=== PATIENT | male | born 1975 | race Caucasian/White ===

== ENCOUNTER 2019-02-16 05:49 | Outpatient (CLI) | payer BC ==
[~2019-02-16] VITALS: Ht 185.4 cm; Wt 81.2 kg
[2019-02-16] MEDS ORDERED: ASPI-586 PO (14:53)
[2019-02-16] MEDS ORDERED: MINO100T10 PO (14:53)
[2019-02-16] MEDS ORDERED: SERT50TA9 PO (14:53)
[2019-02-16] MEDS ORDERED: ERGO50006 PO (14:53)
== END 2019-02-16 14:55 ==
LOC: PREOP 05:49
PROVIDERS: ATTEND Surgery
DX: Z01.818 Encounter for other preprocedural examination (principal)

== ENCOUNTER → 2019-02-21 | Day surgery (SDC) | payer BC ==
[~2019-02-21] VITALS: Ht 185.4 cm; Wt 81.2 kg
[~2019-02-21] MED LIST: ASPI-586 PO; ERGO50006 PO; HURRICAINE EXT TUBE (BENZOCAINE) ONE; LACTATED RINGERS 1,000 ML IV ONE; LACTATED RINGERS 1,000 ML IV STA; MIDAZOLAM 2 MG/2 ML (VERSED) VIAL ONE; MINO100T10 PO; PANT40TA2 PO; SERT50TA9 PO; proPOfol 200 MG/20 ML (DIPRIVAN) VIAL IV ONE
[2019-02-21 10:00] VITALS: BP 91/75
--- OUTSIDE RECORDS SUMMARY | 2019-02-21 11:13 | XMS REPORT | Continuity of Care Document ---
Author Organization Unknown Address Unknown Allergies There is no data. Medications There is no data. Problems There is no data. Procedures There is no data. Results Test Result Range TSH w/ FREE T4 - 01/31/19 11:22 TSH 1.04 mIU/L 0.40-4.50 T4, FREE 1.2 ng/dL 0.8-1.8 LIPID PANEL - 01/31/19 11:22 CHOLESTEROL, TOTAL 112 mg/dL <200 HDL CHOLESTEROL 35 mg/dL >40 TRIGLYCERIDES 85 mg/dL <150 LDL-CHOLESTEROL 60 mg/dL (calc) NRG CHOL/HDLC RATIO 3.2 (calc) <5.0 NON HDL CHOLESTEROL 77 mg/dL (calc) <130 CMP - 01/31/19 11:22 GLUCOSE 74 mg/dL 65-99 UREA NITROGEN (BUN) 15 mg/dL 7-25 CREATININE 0.92 mg/dL 0.60-1.35 eGFR NON-AFR. CITIZEN OF [place] 102 mL/min/1.73m2 > OR=60 eGFR 118 mL/min/1.73m2 > OR=60 BUN/CREATININE RATIO NOT APPLICABLE (calc) 6-22 SODIUM 140 mmol/L 135-146 POTASSIUM 4.2 mmol/L 3.5-5.3 CHLORIDE 104 mmol/L 98-110 CARBON DIOXIDE 31 mmol/L 20-32 CALCIUM 9.7 mg/dL 8.6-10.3 PROTEIN, TOTAL 6.8 g/dL 6.1-8.1 ALBUMIN 4.6 g/dL 3.6-5.1 GLOBULIN 2.2 g/dL (calc) 1.9-3.7 ALBUMIN/GLOBULIN RATIO 2.1 (calc) 1.0-2.5 BILIRUBIN, TOTAL 0.8 mg/dL 0.2-1.2 ALKALINE PHOSPHATASE 43 U/L 40-115 AST 21 U/L 10-40 ALT 15 U/L 9-46 Encounters ACCT No. Visit Date/Time Discharge Status Pt. Type Provider Facility Loc./Unit Complaint [id number] 02/08/2019 16:20:00 02/08/2019 23:59:59 CLS Outpatient SPARROW, BNENY Wong [facility] [id number] 01/31/2019 10:40:00 Document Registration
[2019-02-21] MEDS: HURRICAINE EXT TUBE (BENZOCAINE) XX PRN (12:35)
--- NOTE | 2019-02-21 12:35 | Progress Note-Pre Operative ---
Pre-Operative Progress Note H&P Reviewed The H&P was reviewed, patient examined and no changes noted. Date Seen by Provider: Feb 21, 2019 Time Seen by Provider: 12:34 Date H&P Reviewed: Feb 21, 2019 Time H&P Reviewed: 12:34 Pre-Operative Diagnosis: abnormal weight loss, occult + stool, change in bowel habits ANETA THEODORE DO Feb 21, 2019 12:35
[2019-02-21 14:20] VITALS: BP 114/69
--- NOTE | 2019-02-21 14:27 | Progress Note-Post Operative ---
Post-Operative Progess Note Surgeon (s)/Head Start Teacher (s) Surgeon ANETA THEODORE DO Head Start Teacher: na Pre-Operative Diagnosis abnormal weight loss, occult + stool, change in bowel habits Post-Operative Diagnosis hiatal hernia, esophagitis, sigmoid and rectosigmoid polyps Procedure & Operative Findings Date of Procedure 02/21/19 Procedure Performed/Findings egd c biopsies colonoscopy c cold polypectomy sigmoid and snare polypectomy rectosigmoid Anesthesia Type per mda Estimated Blood Loss Estimated blood loss (mL): none Specimens/Packing Specimens Removed antrum, ge, simogid polyp and rectosigmoid polyp ANETA THEODORE DO Feb 21, 2019 14:27
--- NOTE | 2019-02-21 14:29 | Discharge Inst-Simple/Standard ---
Discharge Inst-Standard Discharge Medications New, Converted or Re-Newed RX: Transmitted to Pharmacy Patient Instructions/Follow Up Plan of Care/Instructions/FU: 2 weeks Missael Activity as Tolerated: Yes Discharge Diet: Regular Diet ANETA THEODORE DO Feb 21, 2019 14:29
[2019-02-21 14:50] VITALS: BP 123/88
[2019-02-21 15:00] VITALS: BP 123/88
--- NOTE | 2019-02-21 21:30 | OPERATIVE REPORT ---
DATE OF SERVICE: 02/21/2019 PREOPERATIVE DIAGNOSES: Abnormal weight loss, occult positive stool, and change in bowel habits. POSTOPERATIVE DIAGNOSES: Hiatal hernia, esophagitis, sigmoid and rectosigmoid polyps. PROCEDURES PERFORMED: Esophagogastroduodenoscopy with biopsies, colonoscopy with cold polypectomy of sigmoid and snare polypectomy of rectosigmoid colon. SURGEON: Aneta Canas DO. ANESTHESIA: Per MDA. ESTIMATED BLOOD LOSS: None. COMPLICATIONS: None. INDICATIONS: The patient is a 43-year-old male with change in bowel habits, no weight loss, occult positive stool. He has history of sleeve gastrectomy. He understands risks and benefits of procedure and wished to proceed with procedure. Consent was signed in the chart. DESCRIPTION OF PROCEDURE: The patient was taken to the endoscopy suite and placed in the left lateral recumbent position. Timeout was performed. Scope was inserted in mouth, down the esophagus, stomach and into the duodenum without difficulty. There were no polyps, mass or ulceration of the duodenum. Scope was slowly directed back into the stomach where it was further insufflated. Evidence of sleeve was present. A biopsy of the antrum was obtained. There are no polyps, masses or ulcerations, had just some slight erythematous changes. Scope was slowly retracted back into the stomach, which also able to be retroflexed noting a small hiatal hernia. Scope was returned to its normal position, slowly withdrawn to the distal esophagus, which had erythematous changes consistent with some reflux esophagitis. Biopsy was obtained. Scope was then slowly retracted back and complete removed, noting no other pathology. Digital rectal exam was performed. There were no palpable polyps, masses or ulcerations. Scope was inserted into the rectum and started to be advanced. In the rectosigmoid junction, a large pedunculated polyp was present. Scope was advanced all the way to the cecum with minimal difficulty. Prep was adequate with irrigation and suction. Scope was then slowly retracted. There were no polyps, masses or ulcerations in the cecum, ascending, transverse or descending colon. In the sigmoid colon, there is a small polyp, which was cold biopsy polypectomy was performed. Scope was continued slowly retracted back. The polyp at the rectosigmoid junction was between 2 folds and unable to be visualized. The scope was inserted and retracted multiple times until visualized and snare polypectomy was then performed. This was then obtained for specimen. Scope was then slowly retracted until completely removed, noting no other pathology. The patient tolerated procedure well without any complications, taken to recovery room in stable condition. RECOMMENDATIONS: The patient will be started on Protonix 40 mg daily. The patient will need a repeat colonoscopy in 1 to 3 years depending upon pathology. Job ID: [id number] DocumentID: [id number] Dictated Date: 02/21/2019 14:32:28 Barrel Plater Date: 02/21/2019 21:29:50 Dictated By: ANETA CANAS DO
== END | disposition home or self-care (01) ==
LOC: ENDO 09:51
PROVIDERS: ATTEND Surgery
DX: D12.5 Benign neoplasm of sigmoid colon (principal); D12.7 Benign neoplasm of rectosigmoid junction; R19.5 Other fecal abnormalities; K59.00 Constipation, unspecified; K21.0 Gastro-esophageal reflux disease with esophagitis; K44.9 Diaphragmatic hernia without obstruction or gangrene; R63.4 Abnormal weight loss; F32.9 Major depressive disorder, single episode, unspecified; F17.210 Nicotine dependence, cigarettes, uncomplicated; Z79.899 Other long term (current) drug therapy; Z98.84 Bariatric surgery status

== ENCOUNTER → 2019-03-03 | Outpatient (CLI) | payer BC ==
[~2019-03-03] MED LIST changes: +HOLD METFORMIN - RECEIVED CONTRAST 20 ML VIAL IV SCH; -HURRICAINE EXT TUBE (BENZOCAINE) ONE; -LACTATED RINGERS 1,000 ML IV ONE; -LACTATED RINGERS 1,000 ML IV STA; -MIDAZOLAM 2 MG/2 ML (VERSED) VIAL ONE; -proPOfol 200 MG/20 ML (DIPRIVAN) VIAL IV ONE
[2019-03-03] MEDS: IOHEXOL 350 MG/ML 100 ML (OMNIPAQUE 350) VIAL IV ONE (08:14)
--- NOTE | 2019-03-03 08:42 | Diagnostic Imaging Report ---
PROCEDURE: CT abdomen and pelvis with and without contrast. TECHNIQUE: Precontrast acquisitions were acquired through the abdomen and pelvis. Multiple contiguous axial images were obtained through the abdomen and pelvis after the administration of intravenous contrast. Auto Exposure Controls were utilized during the CT exam to meet ALARA standards for radiation dose reduction. INDICATION: Unexplained weight loss, recent colonic polypectomy. No priors. FINDINGS: There is no free intraperitoneal air. There is no evidence for abdominal pelvic hemorrhage. No bowel wall thickening or evidence for mural or mesenteric hematoma. There is no small or large bowel obstruction. There were no findings of an ileus. There is no perienteric or pericolonic edema. There is no appendicitis or diverticulitis. The gallbladder is surgically absent. Liver, bile ducts, spleen, adrenals and pancreas appeared unremarkable. There is no pneumatosis or free gas. No abdominal wall defect, hernia or fluid collection. Urinary bladder sousa may be mildly thickened correlate for possible cystitis. Lung bases and the osseous structures were nonacute. IMPRESSION: 1. No evidence for perforation, abscess, hemorrhage, obstruction, inflammatory process, mass or acute/suspect abdominal pelvic abnormalities. 2. Questionable findings for borderline thickening of the urinary bladder sousa, previous surgical changes, otherwise negative. Dictated by: Dictated on workstation # [id number]
== END ==
LOC: RAD 07:33
PROVIDERS: ATTEND Nurse Practitioner
DX: R63.4 Abnormal weight loss (principal); Z90.49 Acquired absence of other specified parts of digestive tract; Z98.890 Other specified postprocedural states
CPT/HCPCS: 74178

== ENCOUNTER → 2019-03-07 | Outpatient (CLI) | payer BC ==
[~2019-03-07] MED LIST changes: -HOLD METFORMIN - RECEIVED CONTRAST 20 ML VIAL IV SCH
--- NOTE | 2019-03-07 11:07 | Diagnostic Imaging Report ---
PROCEDURE: CT chest with contrast only. TECHNIQUE: Multiple contiguous axial images were obtained through the chest after administration of intravenous contrast. Auto Exposure Controls were utilized during the CT exam to meet ALARA standards for radiation dose reduction. INDICATION: Unexpected weight loss. FINDINGS: There are no discrete pulmonary nodules, masses or infiltrates. There is no pleural or pericardial fluid. There is no pneumothorax. Heart size is normal. Thoracic aorta is normal caliber. No pathologically enlarged adenopathy in the chest. The visualized intra-abdominal structures are unremarkable. Mild thoracic spondylosis. IMPRESSION: No acute abnormality in the chest. Dictated by: Dictated on workstation # [id number]
== END ==
LOC: RAD 09:59
PROVIDERS: ATTEND Nurse Practitioner
DX: R63.4 Abnormal weight loss (principal)
CPT/HCPCS: 71260

== ENCOUNTER → 2019-06-19 | Outpatient (CLI) | payer BC ==
--- NOTE | 2019-06-19 09:45 | Diagnostic Imaging Report ---
PROCEDURE: MR imaging cervical spine without contrast. TECHNIQUE: Multiplanar, multisequence MR imaging of the cervical spine was performed without contrast. INDICATION: Neck pain with bilateral hand tingling and numbness. COMPARISON: No prior studies are available for comparison. FINDINGS: Curvature and alignment of the cervical spine is normal. Vertebral body marrow signal is normal. Disc spaces are fairly well-maintained apart from some disc space narrowing at the C6-7 level as well as desiccation. Cervical cord shows normal homogeneous signal intensity and normal morphology. C2-3: Central canal and neural foramina are widely patent. C3-4: Central canal and neural foramina are widely patent. C4-5: Central canal and neural foraminal are widely patent. C5-6: There are endplate osteophytes and uncovertebral joint degenerative changes resulting in moderate bilateral neural foraminal narrowing. Central canal is patent. C6-7: Broad-based disc/osteophyte complex indents the ventral thecal sac and produces mild canal narrowing. This is asymmetric to the left where there is also significant left neural foraminal narrowing and moderate right neural foraminal narrowing. Uncovertebral joint degenerative change results in moderate bilateral neural foraminal stenosis. C7-T1: No central canal or neural foraminal stenosis is seen. IMPRESSION: Lower cervical spondylosis, greatest at C5-6 and C6-7 levels where there is central canal and neural foraminal narrowing described level by level above. Dictated by: Dictated on workstation # [id number]
== END ==
LOC: RAD 08:12
PROVIDERS: ATTEND Nurse Practitioner
DX: M47.812 Spondylosis without myelopathy or radiculopathy, cervical region (principal); M48.02 Spinal stenosis, cervical region; M25.78 Osteophyte, vertebrae; M50.30 Other cervical disc degeneration, unspecified cervical region
CPT/HCPCS: 72141

== ENCOUNTER 2020-03-20 21:57 | Emergency (ER) | payer OTHER, BC ==
[~2020-03-20] VITALS: Ht 185.5 cm; Wt 79.8 kg
--- OUTSIDE RECORDS SUMMARY | 2020-03-20 22:02 | XMS REPORT | Continuity of Care Document ---
Author Organization Unknown Address Unknown Phone Unavailable Allergies Active Description Code Type Severity Reaction Onset Reported/Identified Relationship to Patient Clinical Status Yes No Known Drug Allergies [id number] Drug Allergy Unknown N/A 02/16/2019 Medications There is no data. Problems Date Dx Coded Attending Type Code Diagnosis Diagnosed By 02/17/2019 ANETA THEODORE DO Ot Z01.818 ENCOUNTER FOR OTHER PREPROCEDURAL EXAMIN 02/27/2019 ANETA THEODORE DO Ot D12. 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 9 MAJOR DEPRESSIVE DISORDER, SINGLE EPISOD 02/27/2019 ANETA THEODORE DO Ot K21. 0 GASTRO-ESOPHAGEAL REFLUX DISEASE WITH ES 02/27/2019 ANETA THEODORE DO Ot K44. 9 DIAPHRAGMATIC HERNIA WITHOUT OBSTRUCTION 02/27/2019 ANETA THEODORE DO Ot K59. 00 CONSTIPATION, UNSPECIFIED 02/27/2019 ANETA THEODORE DO Ot R19. 5 OTHER FECAL ABNORMALITIES 02/27/2019 ANETA THEODORE DO Ot R63. 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 84 BARIATRIC SURGERY STATUS 02/27/2019 ANETA THEODORE DO Ot D12. 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 9 MAJOR DEPRESSIVE DISORDER, SINGLE EPISOD 02/27/2019 ANETA THEODORE DO Ot K21. 0 GASTRO-ESOPHAGEAL REFLUX DISEASE WITH ES 02/27/2019 ANETA THEODORE DO Ot K44. 9 DIAPHRAGMATIC HERNIA WITHOUT OBSTRUCTION 02/27/2019 ANETA THEODORE DO Ot K59. 00 CONSTIPATION, UNSPECIFIED 02/27/2019 ANETA THEODORE DO Ot R19. 5 OTHER FECAL ABNORMALITIES 02/27/2019 ANETA THEODORE DO Ot R63. 4 ABNORMAL WEIGHT LOSS 02/27/2019 ANETA THEODORE DO Ot Z79.899 OTHER SENIOR CARE (CURRENT) DRUG THERAPY 02/27/2019 ANETA THEODORE DO Ot Z98. 84 BARIATRIC SURGERY STATUS 03/05/2019 ANDREWS BENNY J TECHNOLOGY ENGINEER Ot R63.4 ABNORMAL WEIGHT LOSS 03/05/2019 SPARROWEDMUNDSTEVIE Wong TECHNOLOGY ENGINEER Ot Z90.49 ACQUIRED ABSENCE OF OTHER SPECIFIED PART 03/05/2019 SPARROW BENNY Judith TECHNOLOGY ENGINEER Ot Z98.890 OTHER SPECIFIED POSTPROCEDURAL STATES 03/07/2019 SPARROWBENNY Judith TECHNOLOGY ENGINEER Ot R63.4 ABNORMAL WEIGHT LOSS 03/07/2019 SPARROWBENNY Judith TECHNOLOGY ENGINEER Ot Z90.49 ACQUIRED ABSENCE OF OTHER SPECIFIED PART 03/07/2019 SPARROWBENNY Judith TECHNOLOGY ENGINEER Ot Z98.890 OTHER SPECIFIED POSTPROCEDURAL STATES 03/08/2019 SPARROWBENNY Judith TECHNOLOGY ENGINEER Ot R63.4 ABNORMAL WEIGHT LOSS 03/09/2019 SPARROWJUANJOSEBENNY Judith TECHNOLOGY ENGINEER Ot R63.4 ABNORMAL WEIGHT LOSS 03/09/2019 SPARROWBENNY Judith TECHNOLOGY ENGINEER Ot Z90.49 ACQUIRED ABSENCE OF OTHER SPECIFIED PART 03/09/2019 SPARROWBENNY Judith TECHNOLOGY ENGINEER Ot Z98.890 OTHER SPECIFIED POSTPROCEDURAL STATES 03/15/2019 ANETA THEODORE DO Ot D12. 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 9 MAJOR DEPRESSIVE DISORDER, SINGLE EPISOD 03/15/2019 ANETA THEODORE DO Ot K21. 0 GASTRO-ESOPHAGEAL REFLUX DISEASE WITH ES 03/15/2019 ANETA THEODORE DO Ot K44. 9 DIAPHRAGMATIC HERNIA WITHOUT OBSTRUCTION 03/15/2019 ANETA THEODORE DO Ot K59. 00 CONSTIPATION, UNSPECIFIED 03/15/2019 ANETA THEODORE DO Ot R19. 5 OTHER FECAL ABNORMALITIES 03/15/2019 ANETA THEODORE DO Ot R63. 4 ABNORMAL WEIGHT LOSS 03/15/2019 ANETA THEODORE DO Ot Z79.899 OTHER SENIOR CARE (CURRENT) DRUG THERAPY 03/15/2019 ANETA THEODORE DO Ot Z98. 84 BARIATRIC SURGERY STATUS 03/15/2019 BENNY SPARROWP Ot R63.4 ABNORMAL WEIGHT LOSS 03/15/2019 BENNY SPARROW Ot Z90.49 ACQUIRED ABSENCE OF OTHER SPECIFIED PART 03/15/2019 BENNY SPARROW Ot Z98.890 OTHER SPECIFIED POSTPROCEDURAL STATES 06/21/2019 BENNY SPARROWP Ot M25.78 OSTEOPHYTE, VERTEBRAE 06/21/2019 BNENY SPARROWP Ot M47.812 SPONDYLOSIS W/O MYELOPATHY OR RADICULOPA 06/21/2019 BENNY SPARROWP Ot M48.02 SPINAL STENOSIS, CERVICAL REGION 06/21/2019 BENNY SPARROWP Ot M50.30 OTHER CERVICAL DISC DEGENERATION, UNSP C 07/20/2019 BENNY SPARROW Ot M25.78 OSTEOPHYTE, VERTEBRAE 07/20/2019 BENNY SPARROWP Ot M47.812 SPONDYLOSIS W/O MYELOPATHY OR RADICULOPA 07/20/2019 BENNY SPARROWP Ot M48.02 SPINAL STENOSIS, CERVICAL REGION 07/20/2019 BENNY SPARROWP Ot M50.30 OTHER CERVICAL DISC DEGENERATION, UNSP C Procedures There is no data. Results Test [...] 7-25 CREATININE 0.92 mg/dL 0.60-1.35 eGFR NON-AFR. [place] 102 mL/min/1.73m2 > OR = 60 eGFR 118 mL/min/1.73m2 > OR = 60 BUN/CREATININE RATIO NOT APPLICABLE (calc) 6-22 SODIUM 140 mmol/L 135-146 POTASSIUM 4.2 mmol/L 3.5-5.3 CHLORIDE 104 mmol/L 98-110 CARBON DIOXIDE 31 mmol/L 20-32 CALCIUM 9.7 mg/dL 8.6-10.3 PROTEIN, TOTAL 6.8 g/dL 6.1-8.1 ALBUMIN 4.6 g/dL 3.6-5.1 GLOBULIN 2.2 g/dL (calc) 1.9-3.7 ALBUMIN/GLOBULIN RATIO 2.1 (calc) 1.0-2. 5 BILIRUBIN, TOTAL 0.8 mg/dL 0.2-1.2 ALKALINE PHOSPHATASE 43 U/L 40-115 AST 21 U/L 10-40 ALT 15 U/L 9-46 Encounters ACCT No. Visit Date/Time Discharge Status Pt. Type Provider Facility Loc./Unit Complaint [id number] 04/26/2019 08:40:00 04/26/2019 23:59: 59 [facility] Outpatient BENNY SPARROW [facility] [id number] 01/31/2019 10:40:00 Document Registration [id number] 11/24/2019 14:19:00 11/24/2019 23:59 :00 DIS Outpatient Benny Sparrow [id number] 06/19/2019 08:12:00 23:59:59 CLS Outpatient BENNY SPARROW [facility] RAD ABNORMAL SPONTA NEOUS ACTIVITY ON EMG, NECK PAIN [id number] 03/07/2019 09:59:00 23:59:59 CLS Outpatient BENNY SPARROW [facility] RAD UNINTENTIONAL W EIGHT LOSS [id number] 03/03/2019 07:33:00 23:59:59 CLS Outpatient BENNY SPARROW [facility] RAD UNINTENTIONAL W EIGHT LOSS [id number] 02/21/2019 09:51:00 23:59:59 CLS Outpatient THEODORE ANETA MATA [facility] ENDO OCCULT +, CHANGE IN BM' S [id number] 02/16/2019 05:49:00 14:55:00 DIS Outpatient ANETA THEODORE DO [facility] PREOP COLONOSCOPY [id number] 03/20/2020 21:58:[address] Emergency SARAH WALLACE DO [facility] ER RIGHT SHOULDER PAIN
[2020-03-20] MEDS ORDERED: RX-TRAMADOL 50 MG (ULTRAM) TAB PPK#4 PO STA (23:18)
[2020-03-20] MEDS ORDERED: TRAM-42 PO (23:23)
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
[2020-03-20 23:30] VITALS: BP 138/93
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
== END 2020-03-20 23:29 | disposition home or self-care (01) ==
LOC: EDUNIT# 21:57 → ER 21:58
DX: S40.011A Contusion of right shoulder, initial encounter (principal); F41.9 Anxiety disorder, unspecified; F32.9 Major depressive disorder, single episode, unspecified; R40.2142 Coma scale, eyes open, spontaneous, at arrival to emergency department; R40.2252 Coma scale, best verbal response, oriented, at arrival to emergency department; R40.2362 Coma scale, best motor response, obeys commands, at arrival to emergency department; F17.210 Nicotine dependence, cigarettes, uncomplicated; Z79.82 Long term (current) use of aspirin; V86.55XA Driver of 3- or 4- wheeled all-terrain vehicle (ATV) injured in nontraffic accident, initial encounter
CPT/HCPCS: 71045; 73000; 73030

== ENCOUNTER → 2021-06-09 | Outpatient (CLI) | payer OTHER ==
[~2021-06-09] MED LIST changes: +SERT-413 PO; -SERT50TA9 PO; +TRAM-42 PO
--- NOTE | 2021-06-09 16:05 | Diagnostic Imaging Report ---
INDICATION: Right wrist pain post fall. TECHNIQUE: AP, oblique, and lateral views of the right wrist are obtained. FINDINGS: No fracture or acute bony abnormality is seen. There is mild degenerative change of the radiocarpal joint. 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 There is no acute finding. IMPRESSION: Chronic changes as described above with no acute abnormality of the right wrist. Report given to Tierra Perkins APRN at 4:05 PM 06/09/2021/keenan Dictated by: Dictated on workstation # [id number]
== END ==
LOC: RAD 14:57
PROVIDERS: ATTEND Nurse Practitioner Family
DX: Z02.9 Encounter for administrative examinations, unspecified (principal); Z23 Encounter for immunization; M19.032 Primary osteoarthritis, left wrist; W18.39XA Other fall on same level, initial encounter
CPT/HCPCS: 73110

== ENCOUNTER → 2021-06-18 | Outpatient (CLI) | payer OTHER ==
--- NOTE | 2021-06-18 09:30 | Diagnostic Imaging Report ---
INDICATION: Fall with continued right wrist pain. TIME OF EXAM: 9:13 AM Correlation is made with prior radiograph from 06/09/2021. FINDINGS: The distal radius appears intact. 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 There is a lucency in the region of the ulnar styloid. Nondisplaced fracture cannot be entirely excluded. Correlate clinically for pain at the region of the distal ulna. There are degenerative changes at the distal radial ulnar joint. The carpus is unremarkable. Metacarpals are intact. No other abnormalities are seen. IMPRESSION: There is a lucency in the region of the ulnar styloid. Fracture cannot be entirely excluded and correlation for pain at the ulnar styloid is recommended. Dictated by: Dictated on workstation # [id number]
== END ==
LOC: RAD 08:55
PROVIDERS: ATTEND Nurse Practitioner Family
DX: S63.591A Other specified sprain of right wrist, initial encounter (principal); W18.39XA Other fall on same level, initial encounter
CPT/HCPCS: 73110

== ENCOUNTER 2022-01-21 05:30 | Outpatient (CLI) | payer BC ==
[~2022-01-21] VITALS: Ht 185.5 cm; Wt 90.8 kg
[2022-01-21] MEDS ORDERED: SULF-11 PO (09:09)
[2022-01-21] MEDS ORDERED: OMEP40CA6 PO (09:09)
[2022-01-21] MEDS ORDERED: DICL75TA2 PO (09:09)
== END 2022-01-21 09:15 | disposition home or self-care (01) ==
LOC: PREOP 05:30
PROVIDERS: ATTEND Surgery
DX: Z01.818 Encounter for other preprocedural examination (principal)

== ENCOUNTER 2022-01-22 09:00 | Day surgery (SDC) | payer BC ==
[~2022-01-22] VITALS: Ht 185.5 cm; Wt 90.8 kg
[2022-01-22] VITALS (10 sets, daily range): BP systolic 106–119; BP diastolic 57–79
[~2022-01-22 09:00] MED LIST changes: +DICL75TA2 PO; +OMEP40CA6 PO; +SULF-11 PO
[2022-01-22] MEDS ORDERED: LIDOCAINE/EPI 1%-1:200,000 (XYLOCAINE) 30 ML VIAL ONE (09:13)
[2022-01-22] MEDS ORDERED: LACTATED RINGERS 1,000 ML IV PRN (09:15)
[2022-01-22] MEDS ORDERED: ceFAZolin 2 GM IV Premixed 50 ML IV ONE (09:15)
[2022-01-22] MEDS ORDERED: LIDOCAINE PF 2% 5 ML (XYLOCAINE) VIAL ONE (09:39)
[2022-01-22] MEDS ORDERED: MIDAZOLAM 2 MG/2 ML (VERSED) VIAL ONE (09:39)
[2022-01-22] MEDS ORDERED: fentaNYL INJ 100 MCG/2 ML AMP ONE (09:39)
[2022-01-22] MEDS ORDERED: ONDANSETRON 4 MG/2 ML (SDV) Z0FRAN ONE (09:39)
[2022-01-22] MEDS ORDERED: proPOfol 200 MG/20 ML (DIPRIVAN) VIAL IV ONE (09:39)
--- NOTE | 2022-01-22 10:43 | Progress Note-Pre Operative ---
Pre-Operative Progress Note H&P Reviewed The H&P was reviewed, patient examined and no changes noted. Date Seen by Provider: Jan 22, 2022 Time Seen by Provider: 10:43 Date H&P Reviewed: Jan 22, 2022 Time H&P Reviewed: 10:43 Pre-Operative Diagnosis: RIGHT CHEEK CYST ANETA THEODORE DO Jan 22, 2022 10:43
[2022-01-22] MEDS ORDERED: MUPIROCIN 2% OINT 22 GM (BACTROBAN) TUBE ONE (11:06)
--- NOTE | 2022-01-22 11:19 | Discharge Inst-Simple/Standard ---
Discharge Inst-Standard Patient Instructions/Follow Up Plan of Care/Instructions/FU: 7-10 days Missael for suture removal Activity as Tolerated: Yes Discharge Diet: Regular Diet Other Inst to Patient Follow up Appt: Make appointment for 7-10 days. Instructions: May shower in 24 hours, no tub bath or soaking. Use incentive spirometer at home as directed. No Smoking Skin/Wound Care: You have sutures, keep the area clean and dry. Symptoms to Report: Appetite Changes, Extremity Discoloration, Numbness/Tingling, Swelling Increased, Bleeding Excessive, Eyesight Changes, Pain Increased, Urine Color Change, Constipation(Persistent), Fever over 101 degree F, Pain/Pressure in chest, Urinating Difficulty, Cough Up/Vomit Blood, Heart Beat Irreg/Pounding, Pain/Pressure in jaw, Vaginal Bleeding Increase, Cramps in feet or legs, Lighthe adedness, Pain/Pressure in shoulder, Diarrhea(Persistent), Memory Changes Suddenly, Questions/Concerns, Weight gain consecutive days, Dizziness/Fainting, Nausea/Vomiting, Shortness of Breath, Weight gain over 2 pounds If questions or concerns contact your physician Or seek help at emergency department. ANETA THEODORE DO Jan 22, 2022 11:19
[2022-01-22] MEDS ORDERED: SEVOFLURANE (ULTANE) 15 ML INHAL SOLN ONE (11:20)
--- NOTE | 2022-01-22 11:21 | Progress Note-Post Operative ---
Post-Operative Progess Note Surgeon (s)/Ham Stripper (s) Surgeon ANETA THEODORE DO Ham Stripper: na Pre-Operative Diagnosis RIGHT CHEEK CYST Post-Operative Diagnosis same Procedure & Operative Findings Date of Procedure 01/22/22 Procedure Performed/Findings excision right cheek cyst, skin and subcutaneous tissue. 2x2.5 cm. Anesthesia Type general Estimated Blood Loss Estimated blood loss (mL): minimal Specimens/Packing Specimens Removed skin and subcutaneous tissue-cyst ANETA THEODORE DO Jan 22, 2022 11:21
--- NOTE | 2022-01-22 16:09 | Anesthesia-General Post-Op ---
General Patient Condition Mental Status/LOC: Same as Preop Cardiovascular: Satisfactory Nausea/Vomiting: Absent Respiratory: Satisfactory Pain: Controlled Complications: Absent Post Op Complications Complications None Follow Up Care/Instructions Patient Instructions None needed. Anesthesia/Patient Condition Patient Condition Patient is doing well, no complaints, stable vital signs, no apparent adverse anesthesia problems. No complications reported per nursing. JABARI NAIR CRNA Jan 22, 2022 16:09
--- NOTE | 2022-01-22 18:05 | OPERATIVE REPORT ---
DATE OF SERVICE: 01/22/2022 PREOPERATIVE DIAGNOSIS: Right cheek cyst. POSTOPERATIVE DIAGNOSIS: Right cheek cyst. PROCEDURE PERFORMED: Excision of right cheek cyst skin and subcutaneous tissue 2 x 2.5 cm. SURGEON: Aneta Canas DO. ANESTHESIA: General. ESTIMATED BLOOD LOSS: Minimal. COMPLICATIONS: None. INDICATIONS FOR PROCEDURE: The patient is a 46-year-old male with a large cyst on the right cheek. He understands the risks and benefits of the procedure and wishes to proceed. Consent was signed in the chart. DESCRIPTION OF PROCEDURE: The patient was taken to the operating suite. He was prepped and draped in a sterile fashion. A timeout was performed. An elliptical incision was made around the area of the cyst. The skin and subcutaneous tissues were then dissected free removing the cyst in its entirety, measuring 2 x 2.5 cm. The wound was then irrigated with copious amounts of irrigation and hemostasis was achieved. The skin was then closed using 5-0 Prolene in a simple interrupted fashion. The area was washed and dried and antibiotic ointment was placed over it. The patient tolerated the procedure well without any complications. He was taken to the recovery room in stable condition. CC: Flynn De Leon - requested, unable to deliver. Job ID: [id number] DocumentID: [id number] Dictated Date: 01/22/2022 12:48:13 Pharmacy Informatics Manager Date: 01/22/2022 18:04:22 Dictated By: ANETA CANAS DO
== END 2022-01-22 13:04 | disposition home or self-care (01) ==
LOC: SDC 09:00
PROVIDERS: ATTEND Surgery
DX: L02.01 Cutaneous abscess of face (principal); L72.0 Epidermal cyst; K21.9 Gastro-esophageal reflux disease without esophagitis; F17.210 Nicotine dependence, cigarettes, uncomplicated; Z79.899 Other long term (current) drug therapy
CPT/HCPCS: 87081